=== PATIENT | male | born 1985 | race Caucasian/White ===

== ENCOUNTER → 2017-10-31 | Outpatient (CLI) | payer BC ==
[2017-10-31 18:24] LABS: BASO % 0.9 % (0.0-1.0); EOS % 0.9 % (0.0-3.0); HEMATOCRIT 42.6 % (42.0-52.0); HEMOGLOBIN 14.7 g/dl (13.5-17.5); IMMATURE GRANULOCYTE % 0.2 % (0-3.0); LYMPH # 1.7 10^3/uL (1.5-4.5); LYMPH % 36.4 % (24.0-44.0); MEAN CORPUSCULAR HEMOGLOBIN 33.3 pg (27.0-33.0); MEAN CORPUSCULAR HGB CONC 34.5 g/dl (32.0-36.5); MEAN CORPUSCULAR VOLUME 96.6 fl (80.0-96.0); MONO # 0.2 10^3/uL (0.0-0.8); MONO % 4.7 % (0.0-5.0); NEUTROPHILS # 2.6 10^3/uL (1.8-7.7); NEUTROPHILS % 56.9 % (36.0-66.0); PLATELET COUNT, AUTOMATED 226 10^3/uL (150-450); RED BLOOD COUNT 4.41 10^6/uL (4.30-6.10); RED CELL DISTRIBUTION WIDTH 12.8 % (11.5-14.5); WHITE BLOOD COUNT 4.6 10^3/uL (4.0-10.0)
[2017-10-31 18:56] LABS: FOLATE 7.2 NG/ML; VITAMIN B12 LEVEL 644 PG/ML
[2017-10-31 18:57] LABS: ALBUMIN 4.6 GM/DL (3.2-5.2); ALBUMIN/GLOBULIN RATIO 1.39 (1.00-1.93); ALKALINE PHOSPHATASE 48 U/L (45-117); ALT/SGPT 98 U/L (12-78); ANION GAP 15 MEQ/L (8-16); AST/SGOT 60 U/L (7-37); BILIRUBIN,TOTAL 0.4 MG/DL (0.2-1.0); BLOOD UREA NITROGEN 9 MG/DL (7-18); CALCIUM LEVEL 8.6 MG/DL (8.5-10.1); CARBON DIOXIDE LEVEL 23 MEQ/L (21-32); CHLORIDE LEVEL 104 MEQ/L (98-107); CREATININE FOR GFR 0.79 MG/DL (0.70-1.30); FREE T4 0.76 NG/DL (0.76-1.46); GLOMERULAR FILTRATION RATE > 60.0 (>60); GLUCOSE, FASTING 127 MG/DL (70-100); POTASSIUM SERUM 4.1 MEQ/L (3.5-5.1); SODIUM LEVEL 142 MEQ/L (136-145); THYROID STIMULATING HORMONE 0.587 uIU/ML (0.358-3.740); TOTAL PROTEIN 7.9 GM/DL (6.4-8.2)
[2017-11-07 14:30] LABS: VITAMIN B1 LEVEL WHOLE BLOOD 108.3 nmol/L (66.5-200.0); VITAMIN B6,PYRIDOXAL PHOSPHATE 52.3 ug/L (5.3-46.7); VITAMIN E(ALPHA TOCOPHEROL) 11.1 mg/L (5.9-19.4); VITAMIN E(GAMMA TOCOPHEROL) 1.5 mg/L (0.7-4.9)
== END ==
LOC: M WUC 12:16
DX: R41.3 Other amnesia (principal); E05.00 Thyrotoxicosis with diffuse goiter without thyrotoxic crisis or storm
CPT/HCPCS: 82746

== ENCOUNTER → 2018-10-04 | Outpatient (CLI) | payer BC ==
--- NOTE | 2018-10-05 10:19 | REP ---
MRI RIGHT ANKLE: TECHNIQUE: Sagittal proton density, STIR, axial proton density fat sat, T1, coronal proton density, STIR. The Achilles, anterior tibial, posterior tibial, flexor hallucis longus, flexor digitorum longus and peroneal tendons all appear to be intact without significant tenosynovitis. The anterior and posterior talofibular, calcaneal fibular, tibiofibular and deltoid ligaments appear intact. Plantar tendon is intact. There is no evidence of plantar fascitis. There is a small joint effusion at the tibiotalar joint. No other soft tissue abnormality is seen. There does appear to be a stress fracture of the distal tibia. A nondisplaced curvilinear fracture noted predominantly laterally with associated marrow edema in the distal tibia. There is normal marrow signal in the distal fibula. There is scattered edema in the posterior calcaneus, very mild edema in the inferior talus. The talocalcaneal edema is likely due to stress related changes from an altered gait. No osteochondral defect is seen at the talar dome. IMPRESSION: Stress fracture distal tibia with associated marrow edema. There is marrow edema in the posterior calcaneus and inferior talus likely due to stress-related changes from altered gait. Electronically Signed by Fernando Medrano MD 10/05/2018 04:13 P
== END ==
LOC: M RAD 18:03
PROVIDERS: ATTEND Family Medicine
DX: S82.831K Other fracture of upper and lower end of right fibula, subsequent encounter for closed fracture with nonunion (principal); X58.XXXD Exposure to other specified factors, subsequent encounter; Y92.9 Unspecified place or not applicable

== ENCOUNTER 2019-12-29 14:08 | Emergency (ER) | payer BC ==
[~2019-12-29] VITALS: Ht 177.8 cm; Wt 74.1 kg
[2019-12-29 14:09] VITALS: BP 138/82
[2019-12-29] MEDS ORDERED: NS 1,000 ML IV ONE (14:30)
[2019-12-29] MEDS ORDERED: ONDANSETRON 4MG/2ML VIAL IV ONE (15:15)
[2019-12-29 15:35] LABS: BASO % 0.5 % (0.0-1.0); HEMATOCRIT 42.9 % (42.0-52.0); HEMOGLOBIN 15.4 g/dl (13.5-17.5); LYMPH # 1.7 10^3/uL (1.5-5.0); LYMPH % 29.5 % (24.0-44.0); MEAN CORPUSCULAR HEMOGLOBIN 32.8 pg (27.0-33.0); MEAN CORPUSCULAR HGB CONC 35.9 g/dl (32.0-36.5); MEAN CORPUSCULAR VOLUME 91.5 fl (80.0-96.0); MONO # 0.3 10^3/uL (0.0-0.8); MONO % 4.4 % (0.0-5.0); NEUTROPHILS # 3.9 10^3/uL (1.5-8.5); NEUTROPHILS % 65.4 % (36.0-66.0); PLATELET COUNT, AUTOMATED 247 10^3/uL (150-450); RED BLOOD COUNT 4.69 10^6/uL (4.30-6.10); WHITE BLOOD COUNT 5.9 10^3/uL (4.0-10.0)
[2019-12-29] MEDS: GASTROGRAFIN SOLUTION 30ML PO SCH ×2 (16:04→16:51)
[2019-12-29 16:24] LABS: ALBUMIN 4.7 GM/DL (3.2-5.2); ALT/SGPT 36 U/L (12-78); BILIRUBIN,DIRECT 0.1 MG/DL (0.0-0.2); BILIRUBIN,TOTAL 0.6 MG/DL (0.2-1.0); LIPASE 80 U/L (73-393); TOTAL PROTEIN 8.4 GM/DL (6.4-8.2)
[2019-12-29] MEDS ORDERED: ISOVUE-370 76% 100ML VIAL As Ordered ONE (16:49)
[2019-12-29 17:15] LABS: C REACTIVE PROTEIN QUANTITATIV < 0.30 MG/DL (0.00-0.30)
[2019-12-29 17:20] LABS: ERYTHROCYTE SEDIMENTATION RATE 1 mm/hr (0-15)
[2019-12-29] MEDS ORDERED: ONDA4TAB6 PO (17:45)
[2019-12-29] MEDS ORDERED: LOMO2.5T PO (17:45)
--- NOTE | 2020-01-29 09:40 | REP ---
CT ABDOMEN AND PELVIS WITH INTRAVENOUS (IV) AND ORAL CONTRAST HISTORY: Left-sided abdomen pain. Diarrhea. Rule out irritable bowel disease. COMPARISON: None. CT CONTRAST DOSE: 100 mL of intravenous Isovue-370 is administered. FINDINGS: Digital preliminary scout sniper radiograph demonstrates an unremarkable bowel gas pattern. The lung bases are clear on axial CT images. The liver and the spleen are normal in size and homogeneous in texture. Normal adrenal glands are seen. No abnormality is noted in the gallbladder or in the pancreas. The kidneys enhance symmetrically and are morphologically intact. The left kidney is somewhat smaller than the right. No retroperitoneal mass or adenopathy is seen. Urinary bladder is distended at the time of exam reaching up nearly to the umbilicus. There is liquid content in the rectum. Small bowel loops are normal in caliber and appearance. There is no obstructive lesion seen. No evidence of free air or free intraabdominal fluid. There is air in a normal appendix medial to the cecum. No inflammatory changes are seen in the abdomen or pelvis. IMPRESSION: Distention of the urinary bladder at the time of scanning filled nearly to the umbilicus. Left kidney somewhat smaller than the right, question prior atrophy. Left renal length measurement is 9.3 cm. Right kidney measures 11.7 cm. This may be a normal variant. No acute abdominal or pelvic abnormality. MTDD
== END 2019-12-29 18:00 | disposition home or self-care (01) ==
LOC: M ED 14:08
DX: R19.7 Diarrhea, unspecified (principal); R11.2 Nausea with vomiting, unspecified
CPT/HCPCS: 74177; 80047; 80076; 83690; 85025; 85652; 86140; 96361; 96374; 99283; J2405; Q9963; Q9967